=== PATIENT | female | born 1930 | race Caucasian/White ===

== ENCOUNTER 2017-08-26 07:51 | Inpatient (IN) | payer OTHER ==
[~2017-08-26] VITALS: Ht 154.9 cm; Wt 67.3 kg
[2017-08-26] MEDS ORDERED: FUROSEMIDE 40 MG/4 ML VIAL IV ONE (08:15)
[2017-08-26 09:15] LABS: Basophils # (auto) 0 uL; Basophils % (auto) 0.2 % (0.0-2.0); Eosinophils # (auto) 0 uL; Eosinophils % (auto) 0.1 % (0.0-7.0); Hematocrit 42.5 % (36.0-46.0); Hemoglobin 14.4 g/dL (12.2-16.2); Lymphocytes # (auto) 0.3 uL; Lymphocytes % (auto) 2.1 % (10.0-50.0); Mean Corpuscular Hemoglobin 31.1 pg (28.0-32.0); Mean Corpuscular Hgb Conc. 33.9 g/dL (32.0-36.0); Mean Corpuscular Volume 91.8 fL (80.0-100.0); Monocytes # (auto) 0.4 uL; Monocytes % (auto) 2.8 % (0.0-12.0); Neutrophils # (auto) 12.3 uL; Neutrophils % (auto) 94.8 % (37.0-80.0); Platelet Count (auto) 183 10^3/uL (140-450); Red Blood Cells 4.63 10^6/uL (4.0-5.20); Red Cell Distribution Width 13.4 % (11.8-14.3)
[2017-08-26 09:31] LABS: Alanine Aminotransferase 25 U/L (13-56); Albumin 3.8 g/dL (3.4-5.0); Alkaline Phosphatase 83 U/L (45-117); Anion Gap 6 (5-15); Aspartate Aminotransferase 29 U/L (15-37); BUN/Creatinine Ratio 25.8; Bilirubin, Total 0.6 mg/dL (0.2-1.0); Blood Urea Nitrogen 31 mg/dL (7-18); Calcium 8.7 mg/dL (8.5-10.1); Carbon Dioxide 25 mmol/L (21-32); Chloride 101 mmol/L (98-107); GFR African American 55 mL/min; GFR Non-African American 45 mL/min; Glucose 156 mg/dL (74-106); Potassium 4.5 mmol/L (3.5-5.1); Sodium 132 mmol/L (136-145); Total Protein 7.6 g/dL (6.4-8.2)
[2017-08-26 09:36] LABS: INR 0.98 (0.9-1.15); Partial Thromboplastin Time 29.2 sec (22.64-33.71); Prothrombin Time 10.7 sec (9.37-12.3)
[2017-08-26 10:21] LABS: Urine Bacteria MANY /hpf (None Seen); Urine Blood 1+ /uL (Negative); Urine Specific Gravity 1.015 (1.001-1.035); Urine WBC 4 /hpf (0 - 5); Urine WBC Clumps PRESENT /hpf (None Seen)
[2017-08-26] MEDS ORDERED: cefTRIAXone 1GM/10ml IVPUSH 10 ML IV ONE (10:30)
[2017-08-26] MEDS ORDERED: SODIUM CHLORIDE 0.9% 250 ML IV ONE (11:45)
[2017-08-26] MEDS ORDERED: LEVO25TA6 PO (12:34)
[2017-08-26] MEDS ORDERED: BUDE0.5S IN (12:34)
[2017-08-26] MEDS ORDERED: HOMETAB PO (12:34)
[2017-08-26] MEDS ORDERED: HYDR-531 PO (12:34)
[2017-08-26] MEDS ORDERED: BACL10TA PO (12:34)
[2017-08-26] MEDS ORDERED: FURO20TA PO (12:34)
[2017-08-26] MEDS ORDERED: ALPR0.254 PO (12:34)
[2017-08-26] MEDS ORDERED: ALBUAER3 IN (12:34)
[2017-08-26] MEDS ORDERED: FORM1POW2 NEB (12:34)
[2017-08-26] MEDS ORDERED: SERT-160 PO (12:34)
[2017-08-26] MEDS ORDERED: LISI-646 PO (12:34)
[2017-08-26] MEDS ORDERED: POTA10TA51 PO (12:34)
[2017-08-26] MEDS ORDERED: ATE50T PO (12:34)
[2017-08-26] MEDS ORDERED: ALBUTEROL SULF 2.5 MG/0.5ML(0.5%) NEB SOLN NEB PRN (12:45)
[2017-08-26] MEDS ORDERED: ONDANSETRON HCL 4 MG/2 ML VIAL IV PRN (12:45)
[2017-08-26] MEDS ORDERED: AZITHROMYCIN 500MG/ 250ML 250 ML IV ONE (12:45)
[2017-08-26] MEDS ORDERED: MORPHINE SULFATE 4 MG/ML SYR/VIAL IV PRN (12:45)
[2017-08-26] MEDS: SODIUM CHLORIDE 0.9% 1,000 ML IV SCH (13:13)
[2017-08-26] MEDS: HYDROcodone-ACET 10/325MG TAB PO PRN ×2 (13:14→22:15)
[2017-08-26 13:19] VITALS: BP 125/60
[2017-08-26] MEDS ORDERED: OSELTAMIVIR 30 MG CAP PO ONE (14:15)
[2017-08-26 17:15] VITALS: BP 117/43
[2017-08-26] MEDS: IPRATROPIUM BROM 0.5 MG/2.5ML INH SOL NEB SCH (18:13)
[2017-08-26] MEDS: BUDESONIDE (INHALATION) 0.5 MG/2 ML NEB NEB SCH (18:13)
[2017-08-26 22:00] VITALS: BP 147/61
[2017-08-26] MEDS ORDERED: BACLOFEN 10 MG TAB PO SCH (22:00)
[2017-08-26] MEDS: OSELTAMIVIR 30 MG CAP PO SCH (22:15)
[2017-08-27 04:37] VITALS: BP 133/56
[2017-08-27] MEDS: IPRATROPIUM BROM 0.5 MG/2.5ML INH SOL NEB SCH ×4 (06:00→18:27)
[2017-08-27] MEDS: BUDESONIDE (INHALATION) 0.5 MG/2 ML NEB NEB SCH ×2 (06:00→18:28)
[2017-08-27 06:26] LABS: Basophils # (auto) 0 uL; Basophils % (auto) 0.1 % (0.0-2.0); Eosinophils # (auto) 0 uL; Hematocrit 36.6 % (36.0-46.0); Hemoglobin 12.4 g/dL (12.2-16.2); Lymphocytes # (auto) 0.6 uL; Lymphocytes % (auto) 4.7 % (10.0-50.0); Mean Corpuscular Hemoglobin 31.4 pg (28.0-32.0); Mean Corpuscular Hgb Conc. 33.8 g/dL (32.0-36.0); Mean Corpuscular Volume 92.9 fL (80.0-100.0); Monocytes # (auto) 0.6 uL; Monocytes % (auto) 4.2 % (0.0-12.0); Neutrophils # (auto) 12.4 uL; Platelet Count (auto) 154 10^3/uL (140-450); Red Blood Cells 3.94 10^6/uL (4.0-5.20); Red Cell Distribution Width 13.8 % (11.8-14.3); White Blood Cell 13.7 10^3/uL (4.4-10.8)
[2017-08-27 06:39] LABS: BUN/Creatinine Ratio 28.7; Calcium 7.8 mg/dL (8.5-10.1); Potassium 3.8 mmol/L (3.5-5.1)
[2017-08-27 06:56] LABS: Cholesterol 97 mg/dL (< 200); HDL Cholesterol 59 mg/dL (40-59); LDL Cholesterol 32 mg/dL (< 100); Triglycerides 61 mg/dL (< 150)
[2017-08-27] MEDS ORDERED: LEVOTHYROXINE SODIUM 50 MCG TAB PO SCH (07:00)
[2017-08-27] MEDS: SODIUM CHLORIDE 0.9% 1,000 ML IV SCH (08:45)
[2017-08-27 09:00] VITALS: BP 131/64
[2017-08-27] MEDS ORDERED: cefTRIAXone 1GM/10ml IVPUSH 10 ML IV SCH (09:00)
[2017-08-27] MEDS: OSELTAMIVIR 30 MG CAP PO SCH (09:34)
[2017-08-27] MEDS ORDERED: LISINOPRIL 10 MG TAB PO SCH (10:00)
[2017-08-27] MEDS ORDERED: FUROSEMIDE 20 MG TAB PO SCH (10:00)
[2017-08-27] MEDS ORDERED: METOPROLOL SUCCINATE XL 50 MG TAB PO SCH (10:00)
[2017-08-27] MEDS ORDERED: SERTRALINE HCL 50 MG TAB PO SCH (10:00)
[2017-08-27] MEDS ORDERED: AZITHROMYCIN 500MG/ 250ML 250 ML IV SCH (10:00)
[2017-08-27] MEDS ORDERED: LEVOFLOXACIN 500 MG TAB PO ONE (12:00)
[2017-08-27 12:31] VITALS: BP 131/64
[2017-08-27 13:00] VITALS: BP 121/58
[2017-08-27 17:00] VITALS: BP 157/79
== END 2017-08-27 19:00 | disposition home or self-care (01) | DRG 871 ==
LOC: ER 07:51 → OVERFLOW 07:52 → CENTRAL 16:42
PROVIDERS: ADMIT Internal Medicine; ATTEND Internal Medicine
DX: A41.9 Sepsis, unspecified organism (principal); J10.08 Influenza due to other identified influenza virus with other specified pneumonia; I11.0 Hypertensive heart disease with heart failure; J44.0 Chronic obstructive pulmonary disease with (acute) lower respiratory infection; I50.9 Heart failure, unspecified; M48.8X2 Other specified spondylopathies, cervical region; N39.0 Urinary tract infection, site not specified; B96.89 Other specified bacterial agents as the cause of diseases classified elsewhere; F32.9 Major depressive disorder, single episode, unspecified; F41.9 Anxiety disorder, unspecified; E03.9 Hypothyroidism, unspecified; G89.29 Other chronic pain; Z90.710 Acquired absence of both cervix and uterus; Z79.899 Other long term (current) drug therapy
CPT/HCPCS: 36415; 71045; 71046; 80048; 80053; 80061; 81001; 83036; 83605; 83880; 84443; 84484; 85025; 85610; 85652; 85730; 87040; 87070; 87077; 87086; 87088; 87186; 87205; 87804; 93005; 93306; 94640; 96361; 96365; 96375; G9035

== ENCOUNTER 2018-02-16 20:50 | Inpatient (IN) | payer OTHER ==
[~2018-02-16] VITALS: Ht 167.6 cm; Wt 70.3 kg
[~2018-02-16 20:50] MED LIST: ALBUAER3 IN; ALPR0.254 PO; ATE50T PO; BACL10TA PO; BUDE0.5S IN; FORM1POW2 NEB; FURO20TA PO; HOMETAB PO; LEVO25TA6 PO; LISI-646 PO; POTA10TA51 PO; SERT-160 PO
[2018-02-16 21:46] LABS: Basophils # (auto) 0 uL; Basophils % (auto) 0.6 % (0.0-2.0); Eosinophils # (auto) 0 uL; Eosinophils % (auto) 0.8 % (0.0-7.0); Hematocrit 39.4 % (36.0-46.0); Hemoglobin 13.6 g/dL (12.2-16.2); Mean Corpuscular Hemoglobin 31.6 pg (28.0-32.0); Mean Corpuscular Hgb Conc. 34.5 g/dL (32.0-36.0); Mean Corpuscular Volume 91.7 fL (80.0-100.0); Monocytes # (auto) 0.6 uL; Monocytes % (auto) 9.1 % (0.0-12.0); Neutrophils # (auto) 3.5 uL; Neutrophils % (auto) 57.5 % (37.0-80.0); Platelet Count (auto) 271 10^3/uL (140-450); Red Cell Distribution Width 13.6 % (11.8-14.3); White Blood Cell 6.1 10^3/uL (4.4-10.8)
[2018-02-16] MEDS ORDERED: ALBUTEROL SULF 2.5 MG/0.5ML(0.5%) NEB SOLN NEB ONE (22:00)
[2018-02-16] MEDS ORDERED: IPRATROPIUM BROM 0.5 MG/2.5ML INH SOL NEB ONE (22:00)
[2018-02-16 22:01] LABS: INR 0.93 (0.9-1.15); Partial Thromboplastin Time 28.6 sec (23.78-33.04)
[2018-02-16 22:28] LABS: Albumin 3.9 g/dL (3.4-5.0); BUN/Creatinine Ratio 32.4; Bilirubin, Total 0.4 mg/dL (0.2-1.0); Potassium 5.3 mmol/L (3.5-5.1); Total Protein 7.2 g/dL (6.4-8.2)
[2018-02-16] MEDS ORDERED: LABETALOL HCL 5 MG/ML ML 20ML VIAL IV ONE (22:30)
[2018-02-16 22:50] LABS: Urine Bacteria FEW /hpf (None Seen); Urine Blood Negative /uL (Negative); Urine Specific Gravity 1.006 (1.001-1.035); Urine WBC 1 /hpf (0 - 5)
[2018-02-16] MEDS ORDERED: SODIUM CHLORIDE 0.9% 1,000 ML IV ONE (23:00)
[2018-02-17] MEDS ORDERED: ONDANSETRON HCL 4 MG/2 ML VIAL IV PRN (04:30)
[2018-02-17] MEDS ORDERED: HYDROcodone-ACET 5/325MG TAB PO PRN (04:30)
[2018-02-17] MEDS ORDERED: ACETAMINOPHEN 500 MG TAB PO PRN (04:30)
[2018-02-17] MEDS ORDERED: IPRATROPIUM BROM 0.5 MG/2.5ML INH SOL ONE ×2 (06:01→11:25)
[2018-02-17] MEDS ORDERED: ALBUTEROL SULF 2.5 MG/0.5ML(0.5%) NEB SOLN ONE ×2 (06:01→11:25)
[2018-02-17] MEDS: IPRATROPIUM BROM 0.5 MG/2.5ML INH SOL NEB SCH ×3 (06:05→18:23)
[2018-02-17] MEDS: ALBUTEROL SULF 2.5 MG/0.5ML(0.5%) NEB SOLN NEB SCH ×3 (06:05→18:23)
[2018-02-17] MEDS ORDERED: ALPRAZolam 0.25 MG TAB ONE (06:23)
[2018-02-17] MEDS ORDERED: HYDROcodone-ACET 5/325MG TAB ONE (06:23)
[2018-02-17] MEDS: ALPRAZolam 0.25 MG TAB PO PRN ×2 (06:25→15:24)
[2018-02-17 07:27] LABS: Basophils # (auto) 0 uL; Basophils % (auto) 0.5 % (0.0-2.0); Eosinophils # (auto) 0 uL; Eosinophils % (auto) 0.1 % (0.0-7.0); Hematocrit 39.5 % (36.0-46.0); Hemoglobin 13.8 g/dL (12.2-16.2); Lymphocytes # (auto) 0.7 uL; Lymphocytes % (auto) 10.8 % (10.0-50.0); Mean Corpuscular Hemoglobin 32.1 pg (28.0-32.0); Mean Corpuscular Hgb Conc. 34.9 g/dL (32.0-36.0); Mean Corpuscular Volume 92.1 fL (80.0-100.0); Monocytes # (auto) 0.2 uL; Monocytes % (auto) 3.8 % (0.0-12.0); Neutrophils # (auto) 5.4 uL; Neutrophils % (auto) 84.8 % (37.0-80.0); Platelet Count (auto) 268 10^3/uL (140-450); Red Blood Cells 4.29 10^6/uL (4.0-5.20); Red Cell Distribution Width 13.4 % (11.8-14.3); White Blood Cell 6.4 10^3/uL (4.4-10.8)
[2018-02-17 07:51] LABS: Anion Gap 10 (5-15); BUN/Creatinine Ratio 34.8; Blood Urea Nitrogen 32 mg/dL (7-18); Calcium 9.3 mg/dL (8.5-10.1); Carbon Dioxide 20 mmol/L (21-32); Chloride 99 mmol/L (98-107); GFR African American 74 mL/min; GFR Non-African American 61 mL/min; Glucose 146 mg/dL (74-106); Potassium 4.5 mmol/L (3.5-5.1); Sodium 129 mmol/L (136-145)
[2018-02-17] MEDS ORDERED: LISINOPRIL 20 MG TAB PO SCH (10:00)
[2018-02-17] MEDS ORDERED: ATENOLOL 25 MG TAB PO SCH (10:00)
[2018-02-17 15:13] VITALS: BP 157/65
[2018-02-17 19:04] VITALS: BP 163/72
== END 2018-02-17 20:12 | disposition home or self-care (01) | DRG 280 ==
LOC: EDBD 20:50 → ER 20:56 → UNDOADMIN 20:57 → TELE 20:57
PROVIDERS: ADMIT Nurse Practitioner Family; ATTEND Internal Medicine
DX: I21.9 Acute myocardial infarction, unspecified (principal); I50.33 Acute on chronic diastolic (congestive) heart failure; E87.1 Hypo-osmolality and hyponatremia; E03.9 Hypothyroidism, unspecified; E78.5 Hyperlipidemia, unspecified; E87.5 Hyperkalemia; J44.9 Chronic obstructive pulmonary disease, unspecified; F41.9 Anxiety disorder, unspecified; I11.0 Hypertensive heart disease with heart failure; I16.0 Hypertensive urgency; Z83.3 Family history of diabetes mellitus; Z84.89 Family history of other specified conditions; Z80.0 Family history of malignant neoplasm of digestive organs; Z79.899 Other long term (current) drug therapy; Z90.710 Acquired absence of both cervix and uterus
CPT/HCPCS: 36415; 70450; 71045; 80048; 80053; 81001; 83880; 84484; 85025; 85610; 85730; 93005; 94640; 96361; 96374

== ENCOUNTER 2019-06-26 05:11 | Inpatient (IN) | payer OTHER ==
[~2019-06-26] VITALS: Ht 154.9 cm; Wt 64.2 kg
[~2019-06-26 05:11] MED LIST changes: +FURO1TAB33 PO; -FURO20TA PO; -POTA10TA51 PO
[2019-06-26 05:58] LABS: Urine Bacteria FEW /hpf (None Seen); Urine Blood Negative /uL (Negative); Urine WBC 9 /hpf (0 - 5)
[2019-06-26 06:52] LABS: Basophils # (auto) 0 uL; Basophils % (auto) 0.3 % (0.0-2.0); Eosinophils # (auto) 0 uL; Hematocrit 41.2 % (36.0-46.0); Hemoglobin 14.8 g/dL (12.2-16.2); Lymphocytes # (auto) 0.8 uL; Lymphocytes % (auto) 9.3 % (10.0-50.0); Mean Corpuscular Hemoglobin 31.8 pg (28.0-32.0); Mean Corpuscular Hgb Conc. 35.9 g/dL (32.0-36.0); Mean Corpuscular Volume 88.6 fL (80.0-100.0); Monocytes # (auto) 0.4 uL; Monocytes % (auto) 4.9 % (0.0-12.0); Neutrophils # (auto) 7.3 uL; Neutrophils % (auto) 85.5 % (37.0-80.0); Platelet Count (auto) 221 10^3/uL (140-450); Red Blood Cells 4.65 10^6/uL (4.0-5.20); Red Cell Distribution Width 12.8 % (11.8-14.3); White Blood Cell 8.6 10^3/uL (4.4-10.8)
[2019-06-26 07:05] LABS: Alanine Aminotransferase 26 U/L (13-56); Albumin 4.1 g/dL (3.4-5.0); Anion Gap 17 (5-15); Aspartate Aminotransferase 32 U/L (15-37); BUN/Creatinine Ratio 19.3; Blood Urea Nitrogen 17 mg/dL (7-18); Calcium 9.6 mg/dL (8.5-10.1); Carbon Dioxide 22 mmol/L (21-32); Chloride 72 mmol/L (98-107); GFR African American 78 mL/min; GFR Non-African American 64 mL/min; Glucose 142 mg/dL (74-106); Magnesium 1.7 mg/dL (1.6-2.6); Potassium 3.2 mmol/L (3.5-5.1)
[2019-06-26 07:16] LABS: Alkaline Phosphatase 83 U/L (45-117); Bilirubin, Total 0.8 mg/dL (0.2-1.0); Sodium 111 mmol/L (136-145)
[2019-06-26] MEDS ORDERED: SODIUM CHLORIDE 0.9% 1,000 ML IV ONE ×2 (08:12)
[2019-06-26] MEDS ORDERED: POTASSIUM EFFERVESENT TAB 25 MEQ PO ONE (08:15)
[2019-06-26] MEDS ORDERED: SODIUM CHL 3% 500 ML IV ONE (08:15)
[2019-06-26] MEDS ORDERED: ONDANSETRON HCL 4 MG/2 ML VIAL IV ONE (09:15)
[2019-06-26] MEDS ORDERED: ESCI10TA53 PO (10:19)
[2019-06-26] MEDS ORDERED: CLON0.1T PO (10:19)
[2019-06-26] MEDS ORDERED: ACETAMINOPHEN 325 MG TAB PO PRN (10:45)
[2019-06-26] MEDS ORDERED: ONDANSETRON HCL 4 MG/2 ML VIAL IV PRN (10:45)
[2019-06-26] MEDS ORDERED: SODIUM CHLORIDE 0.9% 1,000 ML IV SCH (10:45)
[2019-06-26] MEDS ORDERED: hydrALAZINE HCL 20 MG/ML VL IV PRN (12:00)
[2019-06-26] MEDS: LISINOPRIL 20 MG TAB PO SCH (12:13)
[2019-06-26 12:20] LABS: Sodium Urine 86 mmol/L (40-220)
[2019-06-26 12:32] LABS: Creatinine, Urine 21 mg/dL (30.0-125.0)
[2019-06-26] MEDS: MORPHINE SULF INJ 2 MG/ML SYRINGE 1ML IV PRN ×2 (14:25→23:09)
[2019-06-26 15:19] LABS: BUN/Creatinine Ratio 16.5; Calcium 8.9 mg/dL (8.5-10.1); Potassium 3.2 mmol/L (3.5-5.1)
[2019-06-26 19:21] LABS: BUN/Creatinine Ratio 17.9; Calcium 8.7 mg/dL (8.5-10.1); Potassium 3.3 mmol/L (3.5-5.1)
[2019-06-26 22:35] LABS: BUN/Creatinine Ratio 17.7; Calcium 8.9 mg/dL (8.5-10.1); Potassium 3.4 mmol/L (3.5-5.1)
[2019-06-26] MEDS: hydrALAZINE HCL 25 MG TAB PO SCH (23:25)
[2019-06-27 03:27] LABS: BUN/Creatinine Ratio 19.5; Calcium 8.7 mg/dL (8.5-10.1); Potassium 3.2 mmol/L (3.5-5.1)
[2019-06-27] MEDS ORDERED: NITROGLYCERIN 0.4 MG SL TAB SL PRN (03:45)
[2019-06-27] MEDS ORDERED: MORPHINE SULF INJ 2 MG/ML SYRINGE 1ML IV PRN ×2 (03:45→18:15)
--- NOTE | 2019-06-27 04:45 | NUR ---
opening note pt arrived to the unit via stretcher. pt A&Ox4. pt was able to transfer self from [facility] to hospital bed. mcdaniels catheter in place, without kinks, below bladder, and draining. 18g to left wrist. respirations are even and nonlabored on room air. patient does not report any pain. pt doesnt show any s/s of distress.
[2019-06-27 05:30] VITALS: BP 154/65
[2019-06-27 08:00] VITALS: BP 154/69
--- NOTE | 2019-06-27 08:00 | NUR ---
Opening Shift Note Assumed care of patient, awake, alert and oriented X3, to self, date and surroundings. No S/S of distress/SOB, complains of posterior neck pain, 12/17, medicated with prescribed pain medications. Tele# 16, Atrial Fibrillation @ 96 bpm. IV to left hand, 18 gauge, patent and saline locked. Instructed on POC and to call for assist PRN, verbalized understanding. Bed locked, in lowest position, call light within reach, seizure and aspiration precautions in place, will continue to monitor for changes Q1hr and PRN.
[2019-06-27 09:25] LABS: BUN/Creatinine Ratio 16.1; Potassium 3.2 mmol/L (3.5-5.1)
[2019-06-27] MEDS: cefTRIAXone 1GM/50ML D5W 50 ML IV SCH (10:05)
[2019-06-27] MEDS: ATENOLOL 25 MG TAB PO SCH (10:06)
[2019-06-27] MEDS: hydrALAZINE HCL 25 MG TAB PO SCH ×2 (10:06→23:16)
[2019-06-27] MEDS: LISINOPRIL 20 MG TAB PO SCH (10:07)
[2019-06-27] MEDS: ENOXAPARIN SOD 40 MG/0.4 ML SYRINGE SC SCH (10:07)
[2019-06-27 12:00] VITALS: BP 113/61
[2019-06-27 14:17] LABS: BUN/Creatinine Ratio 17.7; Calcium 8.8 mg/dL (8.5-10.1); Potassium 3.6 mmol/L (3.5-5.1)
[2019-06-27] MEDS: ALPRAZolam 0.25 MG TAB PO PRN ×2 (14:21→22:51)
[2019-06-27] MEDS ORDERED: SODIUM CHLORIDE 0.9% 1,000 ML IV ONE (16:45)
--- NOTE | 2019-06-27 16:45 | NUR ---
NEPHROLOGY Dr Martins at bedside for Nephrology follow up, new orders received and followed through. Patient updated on plan of care, verbalized understanding.
[2019-06-27 16:48] VITALS: BP 116/74
--- NOTE | 2019-06-27 17:41 | NUR ---
ROUNDS Dr Reyes at bedside for rounds, new orders received and followed through. Patient updated on plan of care, verbalized understanding.
[2019-06-27] MEDS: HYDROcodone-ACET 5/325MG TAB PO PRN ×3 (18:22→23:16)
--- NOTE | 2019-06-27 19:15 | NUR ---
Opening Note Patient resting in semi fowlers position watching tv. resp are even and nonlabored. pt does not complain of any pain. A&O4. pt does not show s/s of discomfort. pt stated that she may try to ambulate tomorrow. call light within reach, and bed in locked and low position.
--- NOTE | 2019-06-27 19:23 | NUR ---
Care endorsed to BEBETO Hemphill, night nurse.
[2019-06-27 22:00] VITALS: BP 115/70
[2019-06-27] MEDS: SODIUM CHLORIDE 1 GM TAB PO SCH (23:16)
[2019-06-28 04:51] VITALS: BP 138/76
[2019-06-28 06:32] LABS: Potassium 3.3 mmol/L (3.5-5.1)
[2019-06-28 06:40] LABS: BUN/Creatinine Ratio 20.2; Calcium 8.7 mg/dL (8.5-10.1); Magnesium 1.9 mg/dL (1.6-2.6)
[2019-06-28] MEDS: SODIUM CHLORIDE 1 GM TAB PO SCH ×2 (06:48→14:49)
--- NOTE | 2019-06-28 08:00 | NUR ---
Opening Shift Note Assumed care of patient, awake, alert and oriented 4. No S/S of distress/SOB or pain. Tele# 16, sinus rhythm @ 73 bpm. IV to left hand, 18 gauge, patent and infusing 0.9% NS @ 100 ml/hr. Urethral Enriquez catheter draining clear yellow urine to gravity. Instructed on POC and to call for assist PRN, verbalized understanding. Bd locked, in lowest position, call light within reach, will continue to monitor for changes Q1hr and PRN.
[2019-06-28 09:00] VITALS: BP 156/59
[2019-06-28] MEDS: cefTRIAXone 1GM/50ML D5W 50 ML IV SCH (09:48)
[2019-06-28] MEDS: hydrALAZINE HCL 25 MG TAB PO SCH (09:49)
[2019-06-28] MEDS: ATENOLOL 25 MG TAB PO SCH (09:49)
[2019-06-28] MEDS: ENOXAPARIN SOD 40 MG/0.4 ML SYRINGE SC SCH (09:50)
[2019-06-28] MEDS: ALPRAZolam 0.25 MG TAB PO PRN (09:50)
[2019-06-28] MEDS: LISINOPRIL 20 MG TAB PO SCH (09:50)
[2019-06-28 12:36] VITALS: BP 140/69
[2019-06-28] MEDS: HYDROcodone-ACET 5/325MG TAB PO PRN (12:42)
--- NOTE | 2019-06-28 14:05 | NUR ---
ROUNDS Dr Reyes at bedside for rounds, new orders received and followed through. Patient and daughter Linda updated on plan of care, verbalized understanding. Order to discontinue Enriquez catheter. Enriquez dc'd with clean technique following deflation of balloon, 175 ml of clear yellow urine drained. Patient tolerated well with no complaints of pain. Continue care.
[2019-06-28] MEDS ORDERED: POTASSIUM CHL 20 Meq TABLET PO ONE (16:00)
[2019-06-28 17:00] VITALS: BP 153/55
[2019-06-28 17:10] VITALS: BP 153/55
== END 2019-06-28 18:05 | disposition home or self-care (01) | DRG 640 ==
LOC: EDBD 05:11 → ER 05:11 → TELE 05:12 → TELE-EAST 06-27 05:46
PROVIDERS: ADMIT Internal Medicine; ATTEND Internal Medicine
DX: E87.1 Hypo-osmolality and hyponatremia (principal); G92 Toxic encephalopathy; I13.0 Hypertensive heart and chronic kidney disease with heart failure and stage 1 through stage 4 chronic kidney disease, or unspecified chronic kidney disease; N39.0 Urinary tract infection, site not specified; E03.9 Hypothyroidism, unspecified; E87.6 Hypokalemia; F03.90 Unspecified dementia, unspecified severity, without behavioral disturbance, psychotic disturbance, mood disturbance, and anxiety; G89.4 Chronic pain syndrome; I50.9 Heart failure, unspecified; J44.9 Chronic obstructive pulmonary disease, unspecified; N18.2 Chronic kidney disease, stage 2 (mild); Z80.0 Family history of malignant neoplasm of digestive organs; Z83.3 Family history of diabetes mellitus; Z85.828 Personal history of other malignant neoplasm of skin; Z90.710 Acquired absence of both cervix and uterus; Z92.3 Personal history of irradiation; F41.9 Anxiety disorder, unspecified; M54.9 Dorsalgia, unspecified
CPT/HCPCS: 36415; 70450; 71045; 74176; 80048; 80053; 81001; 82570; 83735; 83880; 83935; 84300; 84484; 85025; 87081; 93005; 97163; G0378; J0696; J2405

== ENCOUNTER 2019-10-12 11:17 | Inpatient (IN) | payer OTHER ==
[~2019-10-12] VITALS: Ht 154.9 cm; Wt 62.2 kg
[~2019-10-12 11:17] MED LIST changes: -BUDE0.5S IN; +CLON0.1T PO; +ESCI10TA53 PO; -HOMETAB PO
[2019-10-12] MEDS ORDERED: SODIUM CHLORIDE 0.9% 500 ML IV ONE (11:20)
[2019-10-12] MEDS ORDERED: ONDANSETRON HCL 4 MG/2 ML VIAL IV ONE (11:30)
[2019-10-12 11:47] LABS: Basophils # (auto) 0 10 ^3/uL (0-0.2); Basophils % (auto) 0.1 % (0.0-2.0); Eosinophils # (auto) 0 10 ^3/uL (0-0.8); Eosinophils % (auto) 0.1 % (0.0-7.0); Hematocrit 44.5 % (36.0-46.0); Hemoglobin 15.7 g/dL (12.2-16.2); Lymphocytes % (auto) 5.5 % (10.0-50.0); Mean Corpuscular Hemoglobin 31.1 pg (28.0-32.0); Mean Corpuscular Hgb Conc. 35.3 g/dL (32.0-36.0); Mean Corpuscular Volume 88.3 fL (80.0-100.0); Monocytes % (auto) 5.6 % (0.0-12.0); Neutrophils # (auto) 15.8 10 ^3/uL (1.6-8.6); Neutrophils % (auto) 88.7 % (37.0-80.0); Nucleated Red Blood Cells % 0.1 %; Platelet Count (auto) 224 10^3/uL (140-450); Red Blood Cells 5.04 10^6/uL (4.0-5.20); Red Cell Distribution Width 13.3 % (11.8-14.3); White Blood Cell 17.8 10^3/uL (4.4-10.8)
[2019-10-12 12:08] LABS: Albumin 3.3 g/dL (3.4-5.0); Anion Gap 12 (5-15); Blood Urea Nitrogen 22 mg/dL (7-18); Calcium 8.6 mg/dL (8.5-10.1); Carbon Dioxide 27 mmol/L (21-32); Chloride 66 mmol/L (98-107); Glucose 145 mg/dL (74-106); Magnesium 2.1 mg/dL (1.6-2.6)
[2019-10-12 12:11] LABS: Alanine Aminotransferase 36 U/L (13-56); Alkaline Phosphatase 105 U/L (45-117); Aspartate Aminotransferase 48 U/L (15-37); BUN/Creatinine Ratio 25.9; Bilirubin, Total 1.2 mg/dL (0.2-1.0); GFR African American 81 mL/min; GFR Non-African American 67 mL/min; Total Protein 6.7 g/dL (6.4-8.2)
[2019-10-12 12:16] LABS: Urine Bacteria NONE SEEN /hpf (None Seen); Urine Blood Negative /uL (Negative); Urine Specific Gravity 1.011 (1.001-1.035); Urine WBC <1 /hpf (0 - 5)
[2019-10-12 12:23] LABS: Potassium 2.1 mmol/L (3.5-5.1); Sodium 105 mmol/L (136-145)
[2019-10-12] MEDS ORDERED: POTASSIUM CHL 20MEQ/100ML 100 ML IV ONE ×3 (12:30→14:31)
[2019-10-12] MEDS ORDERED: ONDANSETRON HCL 4 MG/2 ML VIAL IV PRN (14:30)
[2019-10-12] MEDS ORDERED: POTASSIUM EFFERVESENT TAB 25 MEQ PO ONE (14:30)
[2019-10-12] MEDS ORDERED: cloNIDine HCL 0.1 MG TAB PO PRN (14:45)
[2019-10-12] MEDS ORDERED: SODIUM CHLORIDE 0.9% 1,000 ML IV ONE (14:45)
[2019-10-12 15:19] LABS: BUN/Creatinine Ratio 27.3; Calcium 8.2 mg/dL (8.5-10.1)
[2019-10-12 15:28] LABS: Potassium 2.3 mmol/L (3.5-5.1)
[2019-10-12] MEDS ORDERED: ALBUTEROL SULF 2.5 MG/0.5ML(0.5%) NEB SOLN NEB PRN (15:30)
[2019-10-12 15:46] LABS: Free T4 (Free Thyroxine) 1.68 ng/dL (0.89-1.76)
[2019-10-12 15:47] LABS: T3 Total 0.41 ng/mL (0.60-1.81)
[2019-10-12] MEDS ORDERED: SODIUM CHL 3% 100 ML IV ONE ×2 (16:00→16:15)
[2019-10-12] MEDS ORDERED: POTASSIUM CHL 20MEQ/100ML 100 ML IV SCH (16:15)
[2019-10-12 17:29] VITALS: BP 129/49
[2019-10-12 18:18] LABS: BUN/Creatinine Ratio 26.3; Calcium 8.1 mg/dL (8.5-10.1)
[2019-10-12 18:23] LABS: Potassium 2.5 mmol/L (3.5-5.1)
[2019-10-12 18:43] VITALS: BP 121/48
[2019-10-12 20:00] VITALS: BP 119/44
[2019-10-12 22:21] LABS: BUN/Creatinine Ratio 22.9
[2019-10-12] MEDS: LISINOPRIL 20 MG TAB PO SCH (22:23)
[2019-10-12] MEDS: SODIUM CHLORIDE 1 GM TAB PO SCH (22:23)
[2019-10-12 22:27] LABS: Potassium 2.7 mmol/L (3.5-5.1)
[2019-10-12] MEDS ORDERED: POTASSIUM CHL 20 Meq TABLET PO ONE (23:30)
[2019-10-13] VITALS (8 sets, daily range): BP systolic 121–143; BP diastolic 43–58
[2019-10-13 06:46] LABS: BUN/Creatinine Ratio 27.5; Calcium 8.3 mg/dL (8.5-10.1)
[2019-10-13] MEDS: LEVOTHYROXINE SODIUM 50 MCG TAB PO SCH (06:48)
[2019-10-13 06:52] LABS: Potassium 2.8 mmol/L (3.5-5.1)
[2019-10-13 07:05] LABS: Basophils # (auto) 0 10 ^3/uL (0-0.2); Basophils % (auto) 0.1 % (0.0-2.0); Eosinophils # (auto) 0.1 10 ^3/uL (0-0.8); Eosinophils % (auto) 0.5 % (0.0-7.0); Hemoglobin 13.9 g/dL (12.2-16.2); Lymphocytes # (auto) 0.9 10 ^3/uL (0.4-5.4); Lymphocytes % (auto) 7.4 % (10.0-50.0); Mean Corpuscular Hemoglobin 31.1 pg (28.0-32.0); Mean Corpuscular Hgb Conc. 35.6 g/dL (32.0-36.0); Mean Corpuscular Volume 87.3 fL (80.0-100.0); Monocytes # (auto) 1.1 10 ^3/uL (0-1.3); Monocytes % (auto) 8.4 % (0.0-12.0); Neutrophils # (auto) 10.5 10 ^3/uL (1.6-8.6); Neutrophils % (auto) 83.6 % (37.0-80.0); Nucleated Red Blood Cells % 0.1 %; Platelet Count (auto) 217 10^3/uL (140-450); Red Blood Cells 4.46 10^6/uL (4.0-5.20); Red Cell Distribution Width 13.3 % (11.8-14.3); White Blood Cell 12.6 10^3/uL (4.4-10.8)
[2019-10-13] MEDS ORDERED: SODIUM CHLORIDE 0.9% 1,000 ML IV SCH (08:45)
[2019-10-13] MEDS: POTASSIUM CHL 20MEQ/100ML 100 ML IV SCH ×3 (09:50→12:57)
[2019-10-13] MEDS: CITALOPRAM HYDROBR 20 MG TAB PO SCH (09:51)
[2019-10-13] MEDS: ATENOLOL 25 MG TAB PO SCH (09:51)
[2019-10-13] MEDS: SODIUM CHLORIDE 1 GM TAB PO SCH ×2 (09:51→20:52)
[2019-10-13] MEDS: LISINOPRIL 20 MG TAB PO SCH ×2 (09:58→20:51)
[2019-10-13] MEDS ORDERED: SERTRALINE HCL 50 MG TAB PO SCH (10:00)
[2019-10-13 14:06] LABS: Anion Gap 7 (5-15); Blood Urea Nitrogen 16 mg/dL (7-18); Carbon Dioxide 27 mmol/L (21-32); Chloride 77 mmol/L (98-107); GFR African American 82 mL/min; GFR Non-African American 68 mL/min; Glucose 122 mg/dL (74-106); Potassium 3.6 mmol/L (3.5-5.1)
[2019-10-13 14:08] LABS: Sodium 111 mmol/L (136-145)
[2019-10-13] MEDS ORDERED: FLUT1AER3 IN (14:24)
[2019-10-13] MEDS ORDERED: SODIUM CHL 3% 300 ML IV ONE (15:45)
[2019-10-13 18:02] LABS: BUN/Creatinine Ratio 22.5; Potassium 3.9 mmol/L (3.5-5.1)
[2019-10-13 22:11] LABS: BUN/Creatinine Ratio 22.2; Calcium 8.3 mg/dL (8.5-10.1); Potassium 3.5 mmol/L (3.5-5.1)
[2019-10-14] VITALS: BP 116/50
[2019-10-14 01:57] LABS: BUN/Creatinine Ratio 19.6; Calcium 8.4 mg/dL (8.5-10.1); Potassium 3.3 mmol/L (3.5-5.1)
[2019-10-14 04:14] LABS: BUN/Creatinine Ratio 21.4; Calcium 8.1 mg/dL (8.5-10.1); Potassium 3.3 mmol/L (3.5-5.1)
[2019-10-14 05:00] VITALS: BP 137/42
[2019-10-14] MEDS: LEVOTHYROXINE SODIUM 50 MCG TAB PO SCH (05:43)
[2019-10-14] MEDS ORDERED: SODIUM CHLORIDE 0.9% 1,000 ML IV ONE (07:15)
[2019-10-14] MEDS ORDERED: TRELEGY ELLIPTA PO SCH (10:00)
[2019-10-14] MEDS: LISINOPRIL 20 MG TAB PO SCH ×2 (10:00→22:00)
[2019-10-14] MEDS: POTASSIUM CHL 20MEQ/100ML 100 ML IV SCH ×3 (10:04→13:34)
[2019-10-14] MEDS: CITALOPRAM HYDROBR 20 MG TAB PO SCH (10:05)
[2019-10-14] MEDS: ATENOLOL 25 MG TAB PO SCH (10:05)
[2019-10-14 10:12] LABS: BUN/Creatinine Ratio 22.1; Calcium 7.7 mg/dL (8.5-10.1); Potassium 3.1 mmol/L (3.5-5.1)
[2019-10-14] MEDS: SODIUM CHLORIDE 1 GM TAB PO SCH ×2 (10:15→22:08)
[2019-10-14] MEDS ORDERED: SODIUM CHL 3% 500 ML IV ONE (13:15)
[2019-10-14 14:18] LABS: BUN/Creatinine Ratio 23.6; Calcium 7.7 mg/dL (8.5-10.1); Potassium 4.3 mmol/L (3.5-5.1)
[2019-10-14] MEDS: TRELEGY ELLIPTA PO SCH (15:52)
[2019-10-14 16:26] VITALS: BP 122/53
[2019-10-14 18:38] LABS: BUN/Creatinine Ratio 23.9; Calcium 7.7 mg/dL (8.5-10.1)
[2019-10-14 20:00] VITALS: BP 128/54
[2019-10-14 22:09] LABS: BUN/Creatinine Ratio 21.7; Calcium 7.9 mg/dL (8.5-10.1); Potassium 3.7 mmol/L (3.5-5.1)
[2019-10-15] VITALS (7 sets, daily range): BP systolic 127–157; BP diastolic 50–73
[2019-10-15 02:34] LABS: BUN/Creatinine Ratio 21.1; Calcium 7.9 mg/dL (8.5-10.1); Potassium 3.6 mmol/L (3.5-5.1)
[2019-10-15] MEDS: LEVOTHYROXINE SODIUM 50 MCG TAB PO SCH (05:30)
[2019-10-15 06:59] LABS: Calcium 8.2 mg/dL (8.5-10.1); Potassium 3.2 mmol/L (3.5-5.1)
[2019-10-15 07:01] LABS: BUN/Creatinine Ratio 23.4
[2019-10-15 10:18] LABS: Calcium 8.4 mg/dL (8.5-10.1); Potassium 3.2 mmol/L (3.5-5.1)
[2019-10-15] MEDS: TRELEGY ELLIPTA PO SCH (10:30)
[2019-10-15] MEDS: SODIUM CHLORIDE 1 GM TAB PO SCH ×2 (11:02→21:11)
[2019-10-15] MEDS: ATENOLOL 25 MG TAB PO SCH (11:04)
[2019-10-15] MEDS: LISINOPRIL 20 MG TAB PO SCH ×2 (11:04→21:12)
[2019-10-15] MEDS: CITALOPRAM HYDROBR 20 MG TAB PO SCH (11:04)
[2019-10-15] MEDS: POTASSIUM CHL 20MEQ/100ML 100 ML IV SCH ×3 (11:05→16:15)
[2019-10-15] MEDS ORDERED: SODIUM CHLORIDE 1 GM TAB PO ONE (13:45)
[2019-10-15] MEDS ORDERED: UREA 15gm PO Powder PKG PO SCH (13:59)
[2019-10-15 14:15] LABS: BUN/Creatinine Ratio 19.1; Calcium 8.3 mg/dL (8.5-10.1); Potassium 3.5 mmol/L (3.5-5.1)
[2019-10-15] MEDS: URE NA PO SCH ×2 (15:06→21:11)
[2019-10-15 17:59] LABS: BUN/Creatinine Ratio 40.5; Calcium 8.6 mg/dL (8.5-10.1); Potassium 3.7 mmol/L (3.5-5.1)
[2019-10-15 22:41] LABS: BUN/Creatinine Ratio 61.5; Calcium 8.9 mg/dL (8.5-10.1); Potassium 3.5 mmol/L (3.5-5.1)
[2019-10-16] VITALS: BP 148/65
[2019-10-16 03:37] LABS: Basophils # (auto) 0 10 ^3/uL (0-0.2); Basophils % (auto) 0.2 % (0.0-2.0); Eosinophils # (auto) 0.1 10 ^3/uL (0-0.8); Eosinophils % (auto) 0.6 % (0.0-7.0); Hematocrit 42.1 % (36.0-46.0); Lymphocytes # (auto) 1.4 10 ^3/uL (0.4-5.4); Lymphocytes % (auto) 10.5 % (10.0-50.0); Mean Corpuscular Hemoglobin 30.9 pg (28.0-32.0); Mean Corpuscular Hgb Conc. 33.3 g/dL (32.0-36.0); Mean Corpuscular Volume 92.9 fL (80.0-100.0); Monocytes # (auto) 1.2 10 ^3/uL (0-1.3); Monocytes % (auto) 9.2 % (0.0-12.0); Neutrophils # (auto) 10.5 10 ^3/uL (1.6-8.6); Neutrophils % (auto) 79.5 % (37.0-80.0); Nucleated Red Blood Cells % 0.1 %; Platelet Count (auto) 237 10^3/uL (140-450); Red Blood Cells 4.53 10^6/uL (4.0-5.20); White Blood Cell 13.2 10^3/uL (4.4-10.8)
[2019-10-16 03:46] VITALS: BP 145/70
[2019-10-16 03:58] LABS: BUN/Creatinine Ratio 55.7; Calcium 8.6 mg/dL (8.5-10.1); Potassium 3.3 mmol/L (3.5-5.1)
[2019-10-16] MEDS: LEVOTHYROXINE SODIUM 50 MCG TAB PO SCH (05:57)
[2019-10-16 09:07] VITALS: BP 151/91
[2019-10-16] MEDS: CITALOPRAM HYDROBR 20 MG TAB PO SCH (10:36)
[2019-10-16] MEDS: LISINOPRIL 20 MG TAB PO SCH (10:37)
[2019-10-16] MEDS: ATENOLOL 25 MG TAB PO SCH (10:38)
[2019-10-16] MEDS: SODIUM CHLORIDE 1 GM TAB PO SCH (10:38)
[2019-10-16] MEDS: URE NA PO SCH (10:38)
[2019-10-16] MEDS: TRELEGY ELLIPTA PO SCH (10:39)
[2019-10-16] MEDS ORDERED: SODC1T PO (11:30)
[2019-10-16] MEDS ORDERED: POTASSIUM EFFERVESENT TAB 25 MEQ PO ONE (11:45)
[2019-10-16 14:20] VITALS: BP 140/70
[2019-10-16 16:51] VITALS: BP 156/82
== END 2019-10-16 20:20 | disposition hospice, home (50) | DRG 640 ==
LOC: ER 11:17 → EDBD 11:17 → TELE 11:18 → DOU IN ICU 17:14 → TELE-CENTR 10-16 07:14
PROVIDERS: ADMIT Internal Medicine; ATTEND Internal Medicine
DX: E87.1 Hypo-osmolality and hyponatremia (principal); G93.41 Metabolic encephalopathy; E87.6 Hypokalemia; E87.8 Other disorders of electrolyte and fluid balance, not elsewhere classified; D72.829 Elevated white blood cell count, unspecified; E86.9 Volume depletion, unspecified; I50.9 Heart failure, unspecified; J44.9 Chronic obstructive pulmonary disease, unspecified; E03.9 Hypothyroidism, unspecified; R73.9 Hyperglycemia, unspecified; Z66 Do not resuscitate; I67.2 Cerebral atherosclerosis; E86.1 Hypovolemia; Z51.5 Encounter for palliative care; I11.0 Hypertensive heart disease with heart failure; F32.9 Major depressive disorder, single episode, unspecified; F41.9 Anxiety disorder, unspecified; I48.91 Unspecified atrial fibrillation; Z90.710 Acquired absence of both cervix and uterus; Z83.3 Family history of diabetes mellitus; Z80.0 Family history of malignant neoplasm of digestive organs; Z79.899 Other long term (current) drug therapy
CPT/HCPCS: 36415; 70450; 71045; 74176; 80048; 80053; 81001; 83605; 83735; 83930; 83935; 84300; 84439; 84443; 84480; 84484; 85025; 87040; 93005; 96361; 96374; 97110; 97116; 97163; 97530; 99291; G0378; J2405; J3480